=== PATIENT | female | born 1970 | race Caucasian/White ===

== ENCOUNTER 2016-08-12 12:05 | Emergency (ER) | payer OTHER ==
[2016-08-12 12:38] VITALS: TEMP 97.7
[2016-08-12] MEDS ORDERED: ONDANSETRON DISINTEGRATING 4 MG TAB PO ONE (12:39)
[2016-08-12] MEDS ORDERED: NS 1,000 ML IV ONE ×2 (13:16→14:34)
[2016-08-12] MEDS ORDERED: ONDANSETRON 4 MG/2 ML VIAL IVP ONE (13:16)
[2016-08-12] MEDS ORDERED: LORazepam 2 MG/ML INJ IVP ONE (13:16)
[2016-08-12] MEDS ORDERED: MECLIZINE HCL 25 MG TAB PO ONE (13:17)
--- NOTE | 2016-08-12 13:18 | UCPHY ---
H & P Patient Type: Established Chief Complaint Nursing Narrative: DIZZINESS FOR 2 DAYS, STATES POSITIONAL WITH ROOM SPINNING AT TIMES, N/V, UNABLE TO HOLD DOWN MECLIZINE Time Seen by Provider: 08/12/16 13:10 HPI/ROS: CHIEF COMPLAINT: Vertigo HISTORY OF PRESENT ILLNESS: Patient is a 46-year-old female with history of breast cancer status post mastectomy and chemotherapy the completed 6 months ago. She comes to the Urgent Care today complaining of vertigo for the last 24 hours as well as associated vomiting. She denies chest pain or abdominal pain or nausea. She states that her symptoms are worsened when she turns her head from side to side or sits up. She had a similar episode in January of this year and at that time had a negative head CT scan and was ultimately thought to be secondary to her recent completion of chemotherapy. She was prescribed meclizine which she has been taking intermittently since then. This is her 2nd episode of acute vertigo. She is able to ambulate. She does not have any weakness numbness or paralysis. No slurred speech or facial droop. REVIEW OF SYSTEMS: Constitutional: denies: chills, fever, recent illness, recent injury EENTM: denies: blurred vision, double vision, nose congestion Respiratory: denies: cough, shortness of breath Cardiac: denies: chest pain, irregular heart rate, lightheadedness, palpitations Gastrointestinal/Abdominal: denies: abdominal pain, diarrhea, nausea, vomiting, blood streaked stools Genitourinary: denies: dysuria, frequency, hematuria, pain Musculoskeletal: denies: joint pain, muscle pain Skin: denies: lesions, rash, jaundice, bruising Neurological: See HPI Hematologic/Lymphatic: denies: blood clots, easy bleeding, easy bruising Immunologic/allergic: denies: HIV/AIDS, transplant EXAM: GENERAL: Well-appearing, well-nourished and in no acute distress. HEAD: Atraumatic, normocephalic. EYES: Pupils equal round and reactive to light, extraocular movements intact, sclera anicteric, conjunctiva are normal. ENT: TMs normal, nares patent, oropharynx clear without exudates. Moist mucous membranes. NECK: Normal range of motion, supple without lymphadenopathy or JVD. LUNGS: Breath sounds clear to auscultation bilaterally and equal. No wheezes rales or rhonchi. HEART: Regular rate and rhythm without murmurs, rubs or gallops. ABDOMEN: Soft, nontender, normoactive bowel sounds. No guarding, no rebound. No masses appreciated. BACK: No CVA tenderness, no spinal tenderness, step-offs or deformities EXTREMITIES: Normal range of motion, no pitting or edema. No clubbing or cyanosis. NEUROLOGICAL: Mild nystagmus greater to the right than left, worse with positioning. Cranial nerves II through XII grossly intact. Normal speech, normal gait. 5/5 strength, normal movement in all extremities, normal sensation. Normal cerebellar exam. NIH stroke score is 0 PSYCH: Normal mood, normal affect. SKIN: Warm, dry, normal turgor, no visible rashes or lesions. Source: Patient Exam Limitations: No limitations - Personal History LMP (Females 10-55): Post Menopausal - Medical/Surgical History Hx Asthma: No Hx Chronic Respiratory Disease: No Hx Diabetes: No Hx Cardiac Disease: No Hx Renal Disease: No Hx Cirrhosis: No Hx Alcoholism: No Hx HIV/AIDS: No Hx Splenectomy or Spleen Trauma: No Other PMH: Hypothyroidim, Diabetes, Breast Cancer, Bilateral Mastectomy, appendix removal, hx right foot fx, thyroid cancer, BREAST AUGMENTATION - Family History Significant Family History: No pertinent family hx - Social History Smoking Status: Former smoker Alcohol Use: None Drug Use: None Constitutional: Initial Vital Signs Temperature (C) 36.5 C 08/12/16 12:36 Heart Rate 88 08/12/16 12:36 Respiratory Rate 18 08/12/16 12:36 Blood Pressure 139/95 H 08/12/16 12:36 O2 Sat (%) 100 08/12/16 12:36 O2 Delivery Mode Room Air Allergies/Adverse Reactions: Penicillins Allergy (Unknown, Verified 08/12/16 12:36) "makes me feel weird" Home Medications: Medication Instructions Recorded Levothyroxine [Synthroid 100 mcg 100 mcg PO DAILY06 06/17/16 (*)] Tamoxifen Citrate [Nolvadex 10 MG 10 mg PO 06/17/16 (*)] Meclizine HCl [Meclizine HCl 25 mg 25 mg PO BID PRN #14 tab 08/12/16 (RX,OTC)] Ondansetron Odt [Zofran Odt 4 mg 4 mg PO Q4 PRN #20 tab 08/12/16 (RX)] Medical Decision Making ED Course/Re-evaluation: 2:30 p.m. the patient is feeling much better. She is requesting a 2nd L of IV fluids. She was able to tolerate the meclizine. She no longer feels dizzy but is tired after Ativan. We will continue to observe. 3:00 p.m. the patient continues to feel completely better. She still has about 600 cc of fluid remaining. I will prepare paperwork for discharge. Dr. Lilly Samaniego is aware if any problems arise. discussed this with the patient and her in their and agreement. Differential Diagnosis: Partial list of the Differential diagnosis considered include but were not limited to; BPV, dehydration and although unlikely based on the history and physical exam, I also considered ototoxicity, tumor, infection. I discussed these differential diagnoses and the plan with the patient as well as the usual and expected course. The patient understands that the diagnosis is provisional and that in medicine we are not always correct and that further workup is often warranted. Usual and customary warnings were given. All of the patient's questions were answered. The patient was instructed to return to the emergency department should the symptoms at all worsen or return, otherwise to followup with the physician as we discussed. - Data Points Laboratory Results: Laboratory Results 08/12/16 13:50 08/12/16 13:50 Medications Given: Discontinued Medications Sodium Chloride (Ns) 1,000 mls @ 0 mls/hr IV ONCE ONE PRN Reason: Wide Open Stop: 08/12/16 13:17 Last Admin: 08/12/16 13:42 Dose: 1,000 mls Sodium Chloride (Ns) 1,000 mls @ 0 mls/hr IV ONCE ONE PRN Reason: Wide Open Stop: 08/12/16 14:35 Last Admin: 08/12/16 14:34 Dose: 1,000 mls Lorazepam (Ativan Injection) 1 mg IVP EDNOW ONE Stop: 08/12/16 13:17 Last Admin: 08/12/16 13:56 Dose: 1 mg Meclizine HCl (Meclizine Hcl) 50 mg PO EDNOW ONE Stop: 08/12/16 13:18 Last Admin: 08/12/16 14:15 Dose: 50 mg Ondansetron HCl (Zofran Odt) 4 mg PO EDNOW ONE Stop: 08/12/16 12:40 Last Admin: 08/12/16 12:43 Dose: 4 mg Ondansetron HCl (Zofran) 4 mg IVP EDNOW ONE Stop: 08/12/16 13:17 Last Admin: 08/12/16 13:54 Dose: 4 mg Departure - Departure Disposition: Home, Routine, Self-Care Clinical Impression: Benign paroxysmal positional vertigo Qualifiers: Laterality: right Qualifier Code: (H81.11) Benign paroxysmal vertigo, right ear Condition: Fair Instructions: Benign Paroxysmal Positional Vertigo (ED) Referrals: Piyush Keen MD [Primary Care Provider] - As per Instructions Prescriptions: Meclizine HCl [Meclizine HCl 25 mg (RX,OTC)] 25 mg PO BID PRN #14 tab PRN Reason: Dizziness Ondansetron Odt [Zofran Odt 4 mg (RX)] 4 mg PO Q4 PRN #20 tab PRN Reason: Nausea & Vomiting - PQRS PQRS Measurement: not applicable
[2016-08-12 13:57] LABS: % IMMATURE GRANULYOCYTES 0.2 % (0.0-1.1); ABSOLUTE IMMATURE GRANULOCYTES 0.01 10^3/uL (0.00-0.10); ADD DIFF? NO; ADD MORPH? NO; ADD SCAN? NO; ATYPICAL LYMPHOCYTE FLAG 0 (0-99); FRAGMENT RBC FLAG 0 (0-99); HEMATOCRIT 39.8 % (38.0-47.0); HEMOGLOBIN 13.4 g/dL (12.6-16.3); LEFT SHIFT FLG 0 (0-99); LIPEMIA HEMOLYSIS FLAG 80 (0-99); MEAN CELL HEMOGLOBIN 29.1 pg (27.9-34.1); MEAN CELL HEMOGLOBIN CONCENTR. 33.7 g/dL (32.4-36.7); MEAN CELL VOLUME 86.5 fL (81.5-99.8); MEAN PLATELET VOLUME 10.1 fL (8.7-11.7); PLATELET CLUMPS FLAG 10 (0-99); PLATELET COUNT 218 10^3/uL (150-400); RED CELL DISTRIBUTION WIDTH 13.8 % (11.5-15.2)
[2016-08-12 14:19] LABS: ANION GAP 9 mEq/L (8-16); CALCIUM 9.6 mg/dL (8.5-10.4); CARBON DIOXIDE 25 mEq/l (22-31); CHLORIDE 109 mEq/L (97-110); CREATININE 0.6 mg/dL (0.6-1.0); GLOMERULAR FILTRATION RATE > 60; GLUCOSE 95 mg/dL (70-100); POTASSIUM 3.9 mEq/L (3.5-5.2); SODIUM 143 mEq/L (134-144)
[2016-08-12 16:48] VITALS: BP 107/65; PULSE 87; RESP 16; O2SAT 96
== END 2016-08-12 16:25 | disposition home or self-care (01) ==
LOC: CED 12:05
DX: R42 Dizziness and giddiness (principal); E03.9 Hypothyroidism, unspecified; E11.9 Type 2 diabetes mellitus without complications; Z85.3 Personal history of malignant neoplasm of breast; Z92.21 Personal history of antineoplastic chemotherapy; Z90.13 Acquired absence of bilateral breasts and nipples; Z85.850 Personal history of malignant neoplasm of thyroid
CPT/HCPCS: 80048-PO; 85025-PO; 96361-PO; 96374-PO; 96375-PO; 99214-PO; G0463-PO; J2405

== ENCOUNTER → 2016-08-29 | Outpatient (CLI) | payer OTHER ==
[~2016-08-29] MED LIST: GADOBUTROL 10 ML VIAL IVP ONE
== END ==
LOC: FIMAGING 12:49
DX: R42 Dizziness and giddiness (principal); Z85.3 Personal history of malignant neoplasm of breast
CPT/HCPCS: A9585

== ENCOUNTER 2017-02-11 18:05 | Emergency (ER) | payer OTHER ==
[2017-02-11] MEDS ORDERED: ONDANSETRON 4 MG/2 ML VIAL IVP ONE (19:43)
[2017-02-11] MEDS ORDERED: NS 1,000 ML IV ONE ×3 (19:43→21:48)
--- NOTE | 2017-02-11 19:43 | EDPHY ---
H & P Time Seen by Provider: 02/11/17 19:17 HPI/ROS: Chief complaint. Abdominal pain, vomiting HPI. Patient is a 47-year-old female has had several days of congestion and sore throat. She was seen at urgent care 2 days ago and they diagnosed otitis media. She was started on Augmentin though she is allergic to penicillin. Since then she has had continued sore throat and some fever as well as now initially upper abdominal pain now is quite diffuse and vomiting. No diarrhea. No urinary symptoms. Denies chest pain, cough, shortness of breath ROS Constitutional. Fever and weakness Eyes. no problems with vision ENT. Sore throat and congestion Cardiovascular. no chest pain Respiratory. no shortness of breath, no cough Abdominal. Diffuse abdominal pain with nausea and vomiting . no problems urinating MS. no calf pain/swelling, no neck/back pain, no joint pain Skin. no rash Lymph. no swollen glands Neuro. no headache, no dizziness, no difficulty walking or with speech Past Medical/Surgical History: Past medical history is significant for hypothyroid, diabetes, breast cancer with bilateral mastectomy, appendectomy, thyroid cancer, breast augmentation Social History: , nonsmoker, no alcohol Smoking Status: Former smoker Physical Exam: General Appearance: Alert well-developed female moderate distress vital signs show temp 37.5degrees with heart rate 126 Eyes: Pupils equal and round no pallor or injection. ENT, tympanic membranes are normal. Pharynx injected without exudate. Anterior cervical adenopathy Respiratory: There are no retractions, lungs are clear to auscultation. Cardiovascular: Regular rate and rhythm. Gastrointestinal: Abdomen is soft but diffusely tender. No masses. Normal bowel sounds Neurological: Awake and alert, sensory and motor exams grossly normal. Skin: Warm and dry, no rashes. Musculoskeletal: Neck is supple nontender. Extremities symmetrical, full range of motion. Psychiatric: Patient is oriented X 3, there is no agitation. Constitutional: Initial Vital Signs Temperature (C) 37.5 C 02/11/17 18:10 Heart Rate 126 H 02/11/17 18:10 Respiratory Rate 18 02/11/17 18:10 Blood Pressure 102/71 02/11/17 18:10 O2 Sat (%) 96 02/11/17 18:10 O2 Delivery Mode Room Air Allergies/Adverse Reactions: Penicillins Allergy (Unknown, Verified 08/12/16 12:36) "makes me feel weird" Home Medications: Medication Instructions Recorded Levothyroxine [Synthroid 100 mcg 100 mcg PO DAILY06 06/17/16 (*)] Amoxicillin/Clavulanate Pot 875 mg PO 02/11/17 [Augmentin 875 MG TAB (*)] Anastrozole [Arimidex 1 mg (*)] 1 mg PO 02/11/17 Sulfamethox/Tmp 800/160 mg 1 tab PO BID #10 tab 02/11/17 [Bactrim Ds] Medical Decision Making - Diagnostics Imaging Results: Imaging Impressions Abdomen CT 02/11/17 19:44 Impression: Normal CT of the abdomen and pelvis with contrast. I telephoned results to Dr. Hu Adames at 2131 hours. Procedures: IV normal saline with target of 2 L. morphine for pain. Zofran for nausea ED Course/Re-evaluation: Re-evaluation at 9:45 p.m. patient is feeling much better. Her heart rate is down to 94. The patient, her , and I discussed imaging lab results. We discussed treatment plan including criteria for return importance of follow-up and further evaluation. They expressed understanding and agreement. The patient will be given a third L of saline Differential Diagnosis: The patient has upper respiratory symptoms that may well be viral. She was treated for otitis media though her tympanic membranes appear normal today. She was also treated with Augmentin and has penicillin allergy. She has been vomiting and having abdominal pain which I suspect now that we know that the patient has a normal CT that her symptoms are likely from the Augmentin. There is no findings for acute abdomen. The patient was also quite tachycardic which I think represents dehydration and has resolved with 3 L of normal saline - Data Points Laboratory Results: Laboratory Results 02/11/17 20:10 02/11/17 20:10 02/11/17 02/11/17 02/11/17 20:10 20:10 20:10 WBC 8.93 10^3/uL 10^3/uL (3.80-9.50) RBC 4.32 10^6/uL 10^6/uL (4.18-5.33) Hgb 12.6 g/dL g/dL (12.6-16.3) Hct 36.5 % L % (38.0-47.0) MCV 84.5 fL fL (81.5-99.8) MCH 29.2 pg pg (27.9-34.1) MCHC 34.5 g/dL g/dL (32.4-36.7) RDW 13.4 % % (11.5-15.2) Plt Count 194 10^3/uL 10^3/uL (150-400) MPV 10.3 fL fL (8.7-11.7) Neut % (Auto) 74.8 % H % (39.3-74.2) Lymph % (Auto) 16.7 % % (15.0-45.0) [place] % (Auto) 8.0 % % (4.5-13.0) Eos % (Auto) 0.0 % L % (0.6-7.6) Baso % (Auto) 0.2 % L % (0.3-1.7) Nucleat RBC Rel Count 0.0 % % (0.0-0.2) Absolute Neuts (auto) 6.68 10^3/uL H 10^3/uL (1.70-6.50) Absolute Lymphs (auto) 1.49 10^3/uL 10^3/uL (1.00-3.00) Absolute Monos (auto) 0.71 10^3/uL 10^3/uL (0.30-0.80) Absolute Eos (auto) 0.00 10^3/uL L 10^3/uL (0.03-0.40) Absolute Basos (auto) 0.02 10^3/uL 10^3/uL (0.02-0.10) Absolute Nucleated RBC 0.00 10^3/uL 10^3/uL (0-0.01) Immature Gran % 0.3 % % (0.0-1.1) Immature Gran # 0.03 10^3/uL 10^3/uL (0.00-0.10) Sodium 138 mEq/L mEq/L (134-144) Potassium 3.6 mEq/L mEq/L (3.5-5.2) Chloride 103 mEq/L mEq/L (97-110) Carbon Dioxide 21 mEq/l L mEq/l (22-31) Anion Gap 14 mEq/L mEq/L (8-16) BUN 19 mg/dL mg/dL (7-23) Creatinine 0.8 mg/dL mg/dL (0.6-1.0) Estimated GFR > 60 Glucose 86 mg/dL mg/dL (70-100) Calcium 9.1 mg/dL mg/dL (8.5-10.4) Beta HCG, Qual NEGATIVE Medications Given: Discontinued Medications Sodium Chloride (Ns) 1,000 mls @ 0 mls/hr IV EDNOW ONE; Wide Open PRN Reason: Protocol Stop: 02/11/17 19:44 Last Admin: 02/11/17 20:00 Dose: 1,000 mls Sodium Chloride (Ns) 1,000 mls @ 0 mls/hr IV EDNOW ONE; Wide Open PRN Reason: Protocol Stop: 02/11/17 19:44 Last Admin: 02/11/17 20:10 Dose: 1,000 mls Morphine Sulfate (Morphine) 6 mg IVP EDNOW ONE Stop: 02/11/17 19:44 Last Admin: 02/11/17 20:10 Dose: 6 mg Ondansetron HCl (Zofran) 4 mg IVP EDNOW ONE Stop: 02/11/17 19:44 Last Admin: 02/11/17 20:15 Dose: 4 mg Departure - Departure Disposition: Home, Routine, Self-Care Clinical Impression: Dehydration Abdominal pain Qualifiers: Abdominal location: generalized Qualified Code(s): R10.84 - Generalized abdominal pain Condition: Good Instructions: Acute Abdominal Pain (ED) Additional Instructions: Frequent, small sips fluids well nauseated. Gradual diet advancement. Discontinue the Augmentin prescription that you have. May begin Bactrim as new antibiotic tomorrow. Return for worsening symptoms. Recheck in 1-2 days if not continuing to improve Also may use Zofran if needed for nausea Referrals: Piyush Keen MD [Primary Care Provider] - 2-3 days, if not improved Prescriptions: Sulfamethox/Tmp 800/160 mg [Bactrim Ds] 1 tab PO BID #10 tab
[2017-02-11 20:19] LABS: % IMMATURE GRANULYOCYTES 0.3 % (0.0-1.1); ABSOLUTE IMMATURE GRANULOCYTES 0.03 10^3/uL (0.00-0.10); ADD DIFF? NO; ADD MORPH? NO; ADD SCAN? NO; ATYPICAL LYMPHOCYTE FLAG 0 (0-99); FRAGMENT RBC FLAG 0 (0-99); HEMATOCRIT 36.5 % (38.0-47.0); HEMOGLOBIN 12.6 g/dL (12.6-16.3); LEFT SHIFT FLG 0 (0-99); LIPEMIA HEMOLYSIS FLAG 90 (0-99); MEAN CELL HEMOGLOBIN 29.2 pg (27.9-34.1); MEAN CELL HEMOGLOBIN CONCENTR. 34.5 g/dL (32.4-36.7); MEAN CELL VOLUME 84.5 fL (81.5-99.8); MEAN PLATELET VOLUME 10.3 fL (8.7-11.7); PLATELET CLUMPS FLAG 0 (0-99); PLATELET COUNT 194 10^3/uL (150-400); RED BLOOD CELL COUNT 4.32 10^6/uL (4.18-5.33); RED CELL DISTRIBUTION WIDTH 13.4 % (11.5-15.2)
[2017-02-11 20:29] LABS: ANION GAP 14 mEq/L (8-16); CALCIUM 9.1 mg/dL (8.5-10.4); CARBON DIOXIDE 21 mEq/l (22-31); CHLORIDE 103 mEq/L (97-110); CREATININE 0.8 mg/dL (0.6-1.0); GLOMERULAR FILTRATION RATE > 60; GLUCOSE 86 mg/dL (70-100); POTASSIUM 3.6 mEq/L (3.5-5.2); SODIUM 138 mEq/L (134-144)
[2017-02-11 23:33] VITALS: BP 110/69; PULSE 86; RESP 16; TEMP 99; O2SAT 95
== END 2017-02-11 23:33 | disposition home or self-care (01) ==
DX: R10.84 Generalized abdominal pain (principal); E86.0 Dehydration; E86.9 Volume depletion, unspecified; E11.9 Type 2 diabetes mellitus without complications; Z85.3 Personal history of malignant neoplasm of breast; Z85.850 Personal history of malignant neoplasm of thyroid; Z87.891 Personal history of nicotine dependence
CPT/HCPCS: 96374; J2405

== ENCOUNTER → 2017-04-25 | Outpatient (CLI) | payer OTHER | LOC: FIMAGING 09:37 | PROVIDERS: ATTEND Family Medicine | DX: N85.4 Malposition of uterus (principal); N95.0 Postmenopausal bleeding; Z85.3 Personal history of malignant neoplasm of breast; Z97.5 Presence of (intrauterine) contraceptive device ==

== ENCOUNTER 2017-08-27 20:52 | Emergency (ER) | payer OTHER ==
[2017-08-27 21:00] VITALS: RESP 16; TEMP 97.7
--- NOTE | 2017-08-27 21:20 | EDPHY ---
HPI/HX/ROS/PE/MDM Narrative: CHIEF COMPLAINT: Dizziness, body aches, fever, nausea HISTORY OF PRESENT ILLNESS: The patient is a 47 y/o female with a history of diabetes, breast and thyroid cancer, and an appendectomy complaining of dizziness, body aches, subjective fever, headache, nausea, and vomiting onset last night. Her abdomen is sore due to the vomiting. Did not receive the influenza vaccination this year. No chest pain, palpitations, diarrhea, blood in vomit, urinary complaints, lightheadedness, rash, runny nose. REVIEW OF SYSTEMS: Aside from elements discussed in the HPI, a comprehensive 10-point review of systems was reviewed and is negative. PAST MEDICAL HISTORY: Diabetes, breast cancer with double mastectomy, appendectomy, hypothyroidism, thyroid cancer SOCIAL HISTORY: Lives in [place], , works for [employer] VITAL SIGNS: Reviewed by me GENERAL: Well-developed, well-nourished, resting comfortably in no respiratory distress. HEENT: Atraumatic. Eyes: No icterus, no injection. Mouth: dry mucous membranes. No erythema or lesions. Neck: supple with no adenopathy. LUNGS: Clear to auscultation bilaterally, no wheezes, rhonchi or rales. CARDIAC: Regular rate and rhythm, no rubs, murmurs or gallops. ABDOMEN: Epigastric, LUQ and LLQ tenderness, soft, nondistended, bowel sounds normal. BACK: Right flank pain. No CVA tenderness. EXTREMITIES: No trauma. No edema. Range of motion is normal throughout. NEURO: Alert and oriented, grossly nonfocal. SKIN: Warm and dry, no rash. PSYCHIATRIC: Normal mentation, no agitation. Portions of this note were transcribed by a director medical affairs. I personally performed a history, physical exam, medical decision making, and confirmed accuracy of information the transcribed note. ED Course: The patient is a 47 y/o female with a history of diabetes, breast and thyroid cancer, and an appendectomy presenting with nausea, vomiting, and body aches onset last night. On exam she has epigastric, RUQ, RLQ, and right flank tenderness. Labs ordered. 1L IV NS and 4mg IV Zofran administered. 2229: Patient's labs are normal, abdominopelvic CT ordered. 2257: Spoke with Dr. Snider, radiologist, there is no evidence of metastasis or diverticulitis on patient's AP CT. Reassessed patient and discussed laboratory and imaging findings. I have given her a prescription for Zofran. Return precautions provided; patient is comfortable with this plan. At the time of discharge the patient had not provided a urine sample. She has no urinary complaints. No blood in her urine. On repeat abdominal examination she has a soft and nontender. No flank pain currently. MDM: Differential diagnosis of the patient's nausea and vomiting was considered including but not limited to gastroenteritis, gastritis, alcohol intoxication, withdrawal symptoms, intraabdominal processes including appendicitis, pancreatitis, bowel obstruction and medication side effect. - Data Points Imaging Results: Imaging Impressions Abdomen CT 08/27/17 22:21 Impression: 1. No evidence of diverticulitis, hepatic metastasis, or bowel obstruction. 2. No significant adenopathy. Please see above findings. Findings and recommendations discussed with Emergency Department physician, Isabelle Dotson MD at 22:59 hour, 08/27/2017. Final report concurs with initial preliminary interpretation. Imaging: Discussed imaging studies w/ accountant budget Radiologist Laboratory Results: Laboratory Results 08/27/17 21:50 08/27/17 21:50 08/27/17 08/27/17 08/27/17 21:50 21:50 21:50 WBC 7.26 10^3/uL 10^3/uL (3.80-9.50) RBC 5.03 10^6/uL 10^6/uL (4.18-5.33) Hgb 14.5 g/dL g/dL (12.6-16.3) Hct 43.2 % % (38.0-47.0) MCV 85.9 fL fL (81.5-99.8) MCH 28.8 pg pg (27.9-34.1) MCHC 33.6 g/dL g/dL (32.4-36.7) RDW 14.4 % % (11.5-15.2) Plt Count 274 10^3/uL 10^3/uL (150-400) MPV 10.5 fL fL (8.7-11.7) Neut % (Auto) 78.3 % H % (39.3-74.2) Lymph % (Auto) 16.7 % % (15.0-45.0) [place] % (Auto) 4.3 % L % (4.5-13.0) Eos % (Auto) 0.0 % L % (0.6-7.6) Baso % (Auto) 0.3 % % (0.3-1.7) Nucleat RBC Rel Count 0.0 % % (0.0-0.2) Absolute Neuts (auto) 5.69 10^3/uL 10^3/uL (1.70-6.50) Absolute Lymphs (auto) 1.21 10^3/uL 10^3/uL (1.00-3.00) Absolute Monos (auto) 0.31 10^3/uL 10^3/uL (0.30-0.80) Absolute Eos (auto) 0.00 10^3/uL L 10^3/uL (0.03-0.40) Absolute Basos (auto) 0.02 10^3/uL 10^3/uL (0.02-0.10) Absolute Nucleated RBC 0.00 10^3/uL 10^3/uL (0-0.01) Immature Gran % 0.4 % % (0.0-1.1) Immature Gran # 0.03 10^3/uL 10^3/uL (0.00-0.10) Sodium 142 mEq/L mEq/L (135-145) Potassium 3.8 mEq/L mEq/L (3.5-5.2) Chloride 106 mEq/L mEq/L (97-110) Carbon Dioxide 24 mEq/l mEq/l (22-31) Anion Gap 12 mEq/L mEq/L (8-16) BUN 13 mg/dL mg/dL (7-23) Creatinine 0.7 mg/dL mg/dL (0.6-1.0) Estimated GFR > 60 Glucose 100 mg/dL mg/dL (70-100) Calcium 10.4 mg/dL mg/dL (8.5-10.4) Total Bilirubin 0.5 mg/dL mg/dL (0.1-1.4) Conjugated Bilirubin 0.2 mg/dL mg/dL (0.0-0.5) Unconjugated Bilirubin 0.3 mg/dL mg/dL (0.0-1.1) AST 20 IU/L IU/L (14-46) ALT 30 IU/L IU/L (9-52) Alkaline Phosphatase 117 IU/L IU/L (38-126) Total Protein 7.8 g/dL g/dL (6.3-8.2) Albumin 4.7 g/dL g/dL (3.5-5.0) Lipase 99 IU/L IU/L (23-300) Beta HCG, Qual NEGATIVE Nasal Influenza A PCR Nasal Influenza B PCR 08/27/17 21:00 WBC RBC Hgb Hct MCV MCH MCHC RDW Plt Count MPV Neut % (Auto) Lymph % (Auto) [place] % (Auto) Eos % (Auto) Baso % (Auto) Nucleat RBC Rel Count Absolute Neuts (auto) Absolute Lymphs (auto) Absolute Monos (auto) Absolute Eos (auto) Absolute Basos (auto) Absolute Nucleated RBC Immature Gran % Immature Gran # Sodium Potassium Chloride Carbon Dioxide Anion Gap BUN Creatinine Estimated GFR Glucose Calcium Total Bilirubin Conjugated Bilirubin Unconjugated Bilirubin AST ALT Alkaline Phosphatase Total Protein Albumin Lipase Beta HCG, Qual Nasal Influenza A PCR NEGATIVE FOR FLU A (NEGATIVE) Nasal Influenza B PCR NEGATIVE FOR FLU B (NEGATIVE) Medications Given: Discontinued Medications Sodium Chloride (Ns) 1,000 mls @ 0 mls/hr IV EDNOW ONE; Wide Open PRN Reason: Protocol Stop: 08/27/17 21:41 Last Admin: 08/27/17 21:49 Dose: 1,000 mls Sodium Chloride (Ns) 1,000 mls @ 0 mls/hr IV ONCE ONE; Wide Open PRN Reason: Protocol Stop: 08/27/17 21:46 Last Admin: 08/28/17 00:00 Dose: Not Given Ondansetron HCl (Zofran) 4 mg IVP EDNOW ONE Stop: 08/27/17 21:41 Last Admin: 08/27/17 21:49 Dose: 4 mg Ondansetron HCl (Zofran) 4 mg IVP EDNOW ONE Stop: 08/27/17 21:46 Last Admin: 08/28/17 00:00 Dose: Not Given General Time Seen by Provider: 08/27/17 21:15 Initial Vital Signs: Initial Vital Signs Temperature (C) 36.5 C 08/27/17 20:58 Heart Rate 97 08/27/17 20:58 Respiratory Rate 16 08/27/17 20:58 Blood Pressure 110/78 08/27/17 20:58 O2 Sat (%) 99 08/27/17 20:58 O2 Delivery Mode Room Air Allergies/Adverse Reactions: Penicillins Allergy (Unknown, Verified 08/12/16 12:36) "makes me feel weird" Home Medications: Medication Instructions Recorded Levothyroxine [Synthroid 100 mcg 100 mcg PO DAILY06 06/17/16 (*)] Anastrozole [Arimidex 1 mg (*)] 1 mg PO 02/11/17 Ondansetron Odt [Zofran Odt 4 mg 4 mg PO Q6 PRN #8 tab 08/27/17 (RX)] Departure - Departure Disposition: Home, Routine, Self-Care Clinical Impression: Nausea and vomiting Qualifiers: Vomiting type: unspecified Vomiting Intractability: intractable Qualified Code( s): R11.2 - Nausea with vomiting, unspecified Condition: Good Instructions: Acute Nausea and Vomiting (ED) Additional Instructions: For your vomiting, I suggested you start with a bland diet and advance as tolerated. This means start with clear liquids such as water, Gatorade, juice, flat non- caffeinated soda. If you tolerate clear liquids, then you may add bland foods such as bananas, rice, or toast. If you do not have any worsening of your symptoms, you may begin to resume a regular diet. Take 4mg oral Zofran as needed for nausea. Follow-up with your primary doctor within 72 hours. Return to the Emergency Department for fever, chest pain, shortness of breath, increasing pain, or other worsening of condition. Referrals: Piyush Keen MD [Primary Care Provider] - As per Instructions Prescriptions: Ondansetron Odt [Zofran Odt 4 mg (RX)] 4 mg PO Q6 PRN #8 tab PRN Reason: Nausea Report Scribed for: Isabelle Dotson Report Scribed by: Lupe Villatoro Date of Report: 08/27/17 Time of Report: 21:20
[2017-08-27] MEDS ORDERED: ONDANSETRON 4 MG/2 ML VIAL ONE (21:39)
[2017-08-27] MEDS ORDERED: ONDANSETRON 4 MG/2 ML VIAL IVP ONE ×2 (21:40→21:45)
[2017-08-27] MEDS ORDERED: NS 1,000 ML IV ONE ×2 (21:40→21:45)
[2017-08-27 22:01] LABS: PLATELET COUNT 274 10^3/uL (150-400)
[2017-08-27] MEDS ORDERED: IOPAMIDOL (ISOVUE-300) 100 ML BTL ONE (22:22)
[2017-08-27] MEDS ORDERED: ONDANSETRON 4MG PREPACK#2 BTL TAKEHOME ONE (23:39)
[2017-08-28 00:15] VITALS: BP 103/66; PULSE 76; O2SAT 98
== END 2017-08-28 00:15 | disposition home or self-care (01) ==
DX: R11.2 Nausea with vomiting, unspecified (principal); E86.9 Volume depletion, unspecified; E11.9 Type 2 diabetes mellitus without complications; Z85.3 Personal history of malignant neoplasm of breast; Z85.850 Personal history of malignant neoplasm of thyroid; Z90.89 Acquired absence of other organs
CPT/HCPCS: 96374; J2405; Q9967